=== PATIENT | male | born 1980 | race Caucasian/White ===

== ENCOUNTER → 2019-06-10 | Emergency (ER) | payer OTHER ==
[~2019-06-10] VITALS: Ht 175.3 cm; Wt 72.6 kg
== END | disposition home or self-care (01) ==
LOC: ER 22:03
DX: K40.20 Bilateral inguinal hernia, without obstruction or gangrene, not specified as recurrent (principal)

== ENCOUNTER 2020-08-28 11:30 | Outpatient (CLI) | payer OTHER | END 2020-08-28 11:35 | disposition home or self-care (01) | LOC: PPH VACUNA 11:30 | DX: Z23 Encounter for immunization (principal) ==

== ENCOUNTER 2020-12-10 17:52 | Inpatient (IN) | payer OTHER ==
[~2020-12-10] VITALS: Ht 175.3 cm; Wt 77.1 kg
[2020-12-13] MEDS ORDERED: AMOX1TAB5 PO (07:19)
[2020-12-13] MEDS ORDERED: SURFAK240 M1 PO (07:20)
[2020-12-13] MEDS ORDERED: ULTRACET PO (07:20)
[2020-12-13] MEDS ORDERED: PROTONIX40 MG PO (07:21)
== END 2020-12-13 08:04 | disposition home or self-care (01) | DRG 352 ==
LOC: ER 17:52 → SEC-K 12-11 01:55 → O/R 12-12 15:28 → SURH 12-12 17:36
PROVIDERS: ADMIT Surgery; ATTEND Surgery
PROC: 0YQA0ZZ Repair Bilateral Inguinal Region, Open Approach (ICD-10-PCS; principal; 2020-12-12 09:15)
DX: K40.20 Bilateral inguinal hernia, without obstruction or gangrene, not specified as recurrent (principal); Z20.822 Contact with and (suspected) exposure to COVID-19; F12.10 Cannabis abuse, uncomplicated